=== PATIENT | male | born 1980 | race Caucasian/White ===

== ENCOUNTER 2017-07-27 08:42 | Emergency (ER) | payer BC, OTHER ==
[2017-07-27 08:55] VITALS: BP 148/96
--- NOTE | 2017-07-27 08:57 | ED Physician Documentation ---
PD HPI UPPER EXT INJURY - Stated complaint Stated Complaint: THUMB INJURY - Chief complaint Chief Complaint: Ext Problem - History obtained from History obtained from: Patient - History of Present Illness Location: Right, Finger (thumb) Where injury occurred: Work Timing - onset: How many minutes ago (45) Timing - details: Abrupt onset Worsened by: Moving, Palpating Associated symptoms: No: Weakness, Numbness Similar symptoms before: Has not had sx before - Additonal information Additional information: The patient is a 36-year-old male who hyperextended his right thumb in a closing door while at work less than 1 hour prior to arrival. He is right-hand dominant. He denies any other injuries. Tetanus status is up-to-date. Review of Systems Constitutional: denies: Fever Respiratory: denies: Dyspnea Skin: denies: Laceration (s) Musculoskeletal: reports: Extremity pain (Right thumb.) Neurologic: denies: Focal weakness, Numbness PD PAST MEDICAL HISTORY - Past Medical History Past Medical History: Yes Respiratory: None Neuro: None Endocrine/Autoimmune: None Other Past Medical History: sleep apnea - Past Surgical History Past Surgical History: Yes General: Appendectomy Ortho: ACL reconstruction, Shoulder arthroplasty HEENT: Tonsil/Adenoidectomy - Present Medications Home Medications: Ambulatory Orders Medication Instructions Recorded Confirmed No Known Home Medications [No 07/27/17 07/27/17 Known Home Medications] - Allergies Allergies/Adverse Reactions: Allergies Allergy/AdvReac Type Severity Reaction Status Date / Time No Known Drug Allergies Allergy Verified 07/27/17 08:52 - Social History Does the pt smoke?: No Smoking Status: Never smoker - Immunizations Immunizations are current?: Yes PD ED PE NORMAL - Vitals Vital signs reviewed: Yes (Initially hypertensive.) - General General: Alert and oriented X 3, Well developed/nourished - HEENT HEENT: Atraumatic - Respiratory Respiratory: No respiratory distress - Derm Derm: No rash - Extremities Extremities: Other (There is tenderness to palpation at the base of the right thumb, at the MCP joint. There is no break in the integument. Distal neurovascular is intact.) - Neuro Neuro: Alert and oriented X 3, No motor deficit, No sensory deficit Results - Vitals Vitals: Oxygen O2 Source Room air - Rads (name of study) Right thumb Radiology: Prelim report reviewed, EMP read contemporaneously, See rad report ( No fracture or dislocation. Possible soft tissue swelling around the first MCP joint.) PD MEDICAL DECISION MAKING - ED course Complexity details: reviewed results, re-evaluated patient, considered differential, d/w patient, other (L&I form was completed.) ED course: The patient's presentation is most consistent with hyperextension injury of the right thumb, with strain at the first MCP joint. X-ray examination reveals no evidence of fracture or dislocation. Treatment in the emergency department included application of a thumb spica Velcro splint. I discussed with him the expected course of injury, symptomatic treatment and outpatient follow-up, as well as potentially worrisome signs or symptoms that should prompt reevaluation in the emergency department. A labor and industries form was completed. Departure - Departure Disposition: 01 Home, Self Care Clinical Impression: Strain of right thumb Condition: Stable Instructions: ED Sprain Hand Follow-Up: [facility] [Provider Group] Comments: Wear the thumb spica splint if it provides comfort. Keep your right hand elevated as much of the time as possible. You can use ibuprofen, up to 800 mg 3 times daily if needed for pain. Follow up with your primary physician within 1-2 weeks. Call to schedule an appointment. Return to the emergency department if you develop increasing pain or swelling, or otherwise worsening symptoms. Forms: Activity restrictions Discharge Date/Time: 07/27/17 10:08
--- NOTE | 2017-07-27 09:15 | XRAY Preliminary Report ---
Exam: XR FINGER(S) RT IMPRESSION: 1. No fracture or dislocation 2. Possible soft tissue swelling around the first metacarpal phalangeal joint [facility] SITE ID: [id number]
--- NOTE | 2017-07-27 09:15 | XRAY Report ---
EXAM: FIRST DIGIT RADIOGRAPHY EXAM DATE: 07/27/2017 09:06 AM. CLINICAL HISTORY: Injury. COMPARISON: None. TECHNIQUE: 3 views. FINDINGS: Bones: Tiny osseous protrusion off the distal aspect of the first metacarpal could be variant. No fra cture or bone lesion. Joints: Normal. No subluxations. Soft Tissues: Possible soft tissue swelling around the first carpal phalangeal joint IMPRESSION: 1. No fracture or dislocation 2. Possible soft tissue swelling around the first metacarpal phalangeal joint [facility] Referring Provider Line: [phone] SITE ID: [id number]
== END 2017-07-27 10:08 | disposition home or self-care (01) ==
LOC: ED 08:42
DX: S63.642A Sprain of metacarpophalangeal joint of left thumb, initial encounter (principal); W23.0XXA Caught, crushed, jammed, or pinched between moving objects, initial encounter; Y99.0 Civilian activity done for income or pay
CPT/HCPCS: 73140; 99282; 99283

== ENCOUNTER 2022-06-07 08:36 | Outpatient (CLI) | payer BC | END 2022-06-07 08:37 | disposition critical access hospital (66) | LOC: EMS 08:36 | DX: R11.2 Nausea with vomiting, unspecified (principal); R06.02 Shortness of breath; R55 Syncope and collapse; F41.9 Anxiety disorder, unspecified | CPT/HCPCS: A0425; A0429 ==

== ENCOUNTER 2022-06-07 09:04 | Emergency (ER) | payer BC ==
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
[2022-06-07 09:28] LABS: BASOPHILS % (AUTO) 0.5 %; EOSINOPHILS # (AUTO) 0.1 10^3/uL (0.0-0.7); EOSINOPHILS % (AUTO) 1.1 %; HGB - HEMOGLOBIN 15.5 g/dL (14.0-18.0); LYMPHOCYTES % (AUTO) 25.2 %; MEAN CORPUSCULAR HEMOGLOBIN 30.3 pg (27.0-31.0); MEAN CORPUSCULAR HGB CONC 33.7 g/dL (32.0-36.0); MEAN CORPUSCULAR VOLUME 89.8 fL (80.0-94.0); MEAN PLATELET VOLUME 9.4 fL (7.4-11.4); MONOCYTES # (AUTO) 0.6 10^3/uL (0.0-1.0); MONOCYTES % (AUTO) 7.8 %; NEUTROPHILS # (AUTO) 5.2 10^3/uL (1.5-6.6); PLT - PLATELET COUNT 310 10^3/uL (130-450); RED BLOOD COUNT 5.12 10^6/uL (4.70-6.10); RED CELL DISTRIBUTION WIDTH 12.5 % (12.0-15.0); WHITE BLOOD COUNT 8.1 x10^3/uL (4.8-10.8)
[2022-06-07] MEDS ORDERED: PANTOPRAZOLE 40 MG VIAL IVP STA (09:30)
[2022-06-07] MEDS ORDERED: ONDANSETRON 4 MG/2 ML VIAL IVP STA (09:30)
[2022-06-07] MEDS ORDERED: LORazepam 2 MG/ML VIAL IVP STA (09:30)
[2022-06-07] MEDS ORDERED: SODIUM CHLORIDE 0.9% 1,000 ML IV STA (09:30)
--- NOTE | 2022-06-07 09:33 | ED Physician Documentation ---
History of Present Illness - Stated complaint Stated Complaint: N/V ANXIETY - Chief complaint Chief Complaint: Abd Pain - History obtained from History obtained from: Patient - Additonal information Additional information: Patient is a 41-year-old male presenting for evaluation of feeling like he was having a panic attack this morning. He was at work and started hyperventilating and feeling nauseous. He had 2 episodes of emesis that he reports had some pink tinge to it. He denies a history of known ulcer. He does use 800 Milligrams of ibuprofen daily 1-2 times a day. He denies history of alcohol abuse. He denies abdominal pain Or chest pain. He reports feeling stressed recently due to marital stressors. He reports being unfaithful to his and the other person's has found out and he knows that he needs to tell his now which is causing him significant distress. He denies SI or HI. He denies substance abuse. Review of Systems Constitutional: denies: Fever Cardiac: denies: Chest pain / pressure Respiratory: reports: Dyspnea GI: reports: Vomiting. denies: Abdominal Pain, Bloody / black stool Musculoskeletal: denies: Back pain Neurologic: denies: Headache PD PAST MEDICAL HISTORY - Past Medical History Respiratory: None Endocrine/Autoimmune: None - Past Surgical History Past Surgical History: Yes General: Appendectomy Ortho: ACL reconstruction, Shoulder arthroplasty HEENT: Tonsil/Adenoidectomy - Present Medications Home Medications: Ambulatory Orders Medication Instructions Recorded Confirmed Famotidine [Pepcid] 20 mg PO BID #60 tablet 06/07/22 LORazepam [Ativan] 1 mg PO TID PRN #8 tablet 06/07/22 Lisinopril [Zestril] 20 mg PO DAILY 06/07/22 06/07/22 Ondansetron Odt [Zofran] 4 mg TL Q6H PRN #10 tablet 06/07/22 methocarbamoL [Methocarbamol] 750 mg PO HS PRN 06/07/22 06/07/22 - Allergies Allergies/Adverse Reactions: Allergies Allergy/AdvReac Type Severity Reaction Status Date / Time bee venom protein (honey bee) Allergy Anaphylaxis Verified 06/07/22 09:14 - Social History Does the pt smoke?: No Smoking Status: Never smoker - Immunizations Immunizations are current?: Yes PD ED PE NORMAL - General General: Alert and oriented X 3, No acute distress, Well developed/nourished - HEENT HEENT: Atraumatic - Neck Neck: Supple, no meningeal sign - Cardiac Cardiac: RRR - Respiratory Respiratory: No respiratory distress, Clear bilaterally - Abdomen Abdomen: Soft, Non tender, Non distended - Derm Derm: Warm and dry - Neuro Neuro: Alert and oriented X 3, No motor deficit, Normal speech Results - Vitals Vitals: Vital Signs - 24 hr 06/07/22 06/07/22 06/07/22 09:14 09:51 10:44 Temperature 37.1 C Heart Rate 111 H 88 77 Respiratory 28 H 35 H 12 Rate Blood Pressure 151/108 H 140/84 H 126/98 H O2 Saturation 100 100 97 06/07/22 11:00 Temperature Heart Rate 76 Respiratory 22 Rate Blood Pressure 136/87 H O2 Saturation 97 Oxygen O2 Source Room air - EKG (time done) 0927 Rate: Rate (enter#) (76) Rhythm: NSR Ischemia: No: ST elevation c/w ischemia - Labs Labs: Laboratory Tests 06/07/22 06/07/22 06/07/22 09:24 09:24 09:50 WBC 8.1 RBC 5.12 Hgb 15.5 Hct 46.0 MCV 89.8 MCH 30.3 MCHC 33.7 RDW 12.5 Plt Count 310 MPV 9.4 Neut # (Auto) 5.2 Lymph # (Auto) 2.0 [place] # (Auto) 0.6 Eos # (Auto) 0.1 Baso # (Auto) 0.0 Absolute Nucleated RBC 0.00 Nucleated RBC % 0.0 Sodium 136 Potassium 3.6 Chloride 102 Carbon Dioxide 20 L Anion Gap 14.0 H BUN 21 H Creatinine 1.1 Estimated GFR (MDRD) 74 L Glucose 104 H Calcium 9.6 Total Bilirubin 1.0 AST 32 ALT 57 Alkaline Phosphatase 40 L Total Protein 7.7 Albumin 4.9 Globulin 2.8 Albumin/Globulin Ratio 1.8 Lipase 32 Urine Color LT. YELLOW Urine Clarity CLEAR Urine pH 8.0 H Ur Specific [place] 1.010 Urine Protein NEGATIVE Urine Glucose (UA) NEGATIVE Urine Ketones 15 H Urine Occult Blood NEGATIVE Urine Nitrite NEGATIVE Urine Bilirubin NEGATIVE Urine Urobilinogen 0.2 (NORMAL) Ur Leukocyte Esterase NEGATIVE Ur Microscopic Review NOT INDICATED Urine Culture Comments NOT INDICATED PD Medical Decision Making - ED course Complexity details: reviewed results, re-evaluated patient, d/w patient ED course: Patient presenting for evaluation of feeling short of breath, nauseous and having 2 episodes of emesis this morning which had some pink tingeTo it which patient was concerned was blood.Patient appears anxious upon arrival. He states significant life stressors in his marriage.EKG reviewed within normal sinus rhythm. His labs are reassuring. His abdominal exam remained benign. Patient is feeling better with IV fluids, IV Zofran and IV Ativan. He is not suicidal or homicidal. He never had any chest pain to suggest ACS.Symptoms are also atypical for PE. His chest x-ray is reviewed.At this time I do not feel he needs an emergent scope but did juvenile counselor him on avoiding NSAIDs, alcohol and to use medications for lowering acid in his stomach. Patient is also advised on need for close follow-up with his PCP regarding his episodes today. He was given a small amount of antianxiety medication given significant life stressors. Departure - Departure Disposition: 01 Home, Self Care Clinical Impression: Nausea & vomiting, Hematemesis Condition: Stable Instructions: ED Bleed UGI Stable, ED Nausea Vomiting Follow-Up: LUCAS DAY [Primary Care Provider] - Prescriptions: LORazepam [Ativan] 1 mg PO TID PRN #8 tablet PRN Reason: Anxiety Famotidine [Pepcid] 20 mg PO BID #60 tablet Ondansetron Odt [Zofran] 4 mg TL Q6H PRN #10 tablet PRN Reason: Nausea / Vomiting Comments: You were evaluated for nausea/vomiting and blood in your emesis. You are not having any abdominal pain and your labs and vital signs appear stable. I would recommend avoiding any NSAID medication such as ibuprofen or Aleve as well as no alcohol. I am going to start you on medication to help reduce acid in your stomach. I would recommend close follow-up with your primary care doctor as you may need further evaluation for this. Please start with a bland diet and avoid anything spicy or acidic. If it anytime you have any worsening symptoms such as developing pain, noticed blood again in your emesis, Please return to the emergency department. You may Have also had a Panic attack related to recent stress. He did receive medicine called Ativan today to help calm your nerves. I am going to prescribe a small amount of this but again would encourage close follow-up with your primary care doctor.If anytime you have any worsening symptoms such as thoughts of hurting yourself please return to the emergency department. You should not drive or go to work if using this medication. I have sent your medications to [facility] in [place]. Forms: Activity restrictions Discharge Date/Time: 06/07/22 11:52
[2022-06-07 09:50] LABS: ALBUMIN 4.9 g/dL (3.2-5.5); ALBUMIN/GLOBULIN RATIO 1.8 (1.0-2.2); CALCIUM 9.6 mg/dL (8.5-10.3); CREATININE 1.1 mg/dL (0.6-1.2); POTASSIUM 3.6 mmol/L (3.5-5.0); TOTAL PROTEIN 7.7 g/dL (6.7-8.2)
--- NOTE | 2022-06-07 10:01 | XRAY Report ---
PROCEDURE: Chest 1 View X-Ray INDICATIONS: SOA TECHNIQUE: One view of the chest was acquired. COMPARISON: None. FINDINGS: Surgical changes and devices: None. Lungs and pleura: No pleural effusions or pneumothorax. Lungs are clear. It is noted that the righ t costophrenic angle is not fully included within the [id number] and potential pathology within th is region cannot be evaluated. Mediastinum: Mediastinal contours appear normal. Heart size is normal. Bones and chest wall: No suspicious bony lesions. Overlying soft tissues appear unremarkable. IMPRESSION: No acute pulmonary process. Reviewed by: Latanya Field MD on 06/07/2022 10:00 AM [facility] Approved by: Latanya Field MD on 06/07/2022 10:00 AM [facility] Station ID: [id number]
[2022-06-07 10:06] LABS: BILIRUBIN,URINE NEGATIVE (NEGATIVE); GLUCOSE, URINE (UA) NEGATIVE (NEGATIVE); KETONES,URINE (UA) 15 mg/dL (NEGATIVE); LEUKOCYTE ESTERASE, URINE NEGATIVE (NEGATIVE); NITRITE,URINE NEGATIVE (NEGATIVE); OCCULT BLOOD,URINE NEGATIVE (NEGATIVE); PROTEIN,URINE NEGATIVE (NEGATIVE); UROBILINOGEN,URINE 0.2 (NORMAL) E.U./dL (NORMAL)
[2022-06-07 10:07] LABS: CLARITY,URINE CLEAR (CLEAR)
[2022-06-07 11:25] VITALS: BP 136/87
== END 2022-06-07 11:52 | disposition home or self-care (01) ==
LOC: EDUNIT# → ED 09:04
DX: K92.0 Hematemesis (principal); F41.9 Anxiety disorder, unspecified
CPT/HCPCS: 36415; 71045; 80053; 81003; 83690; 85025; 93005; 96361; 96374; 96375; 99284; J2060; 81001; 87086